=== PATIENT | female | born 1980 | race American Indian/Alaskan Native ===

== ENCOUNTER 2023-10-06 16:39 | Emergency (ER) | payer MEDICAID ==
[2023-10-06] MEDS ORDERED: Sodium Chloride 0.9% 10 ML Syringe FLUSH PRN (16:52)
[2023-10-06] MEDS ORDERED: Dexamethasone 4 MG/ML SDV IVPUSH ONE (16:53)
[2023-10-06] MEDS ORDERED: Sodium Chloride 0.9% 1,000 ML IV ONE (16:53)
[2023-10-06] MEDS ORDERED: Magnesium Sulfate/Water 2 GM in Premix Bag 1 BAG IV ONE (16:53)
[2023-10-06] MEDS ORDERED: Albuterol/Ipratropium 3.0-0.5 MG/3 ML Neb Soln NEB ONE (16:54)
[2023-10-06 17:07] LABS: BASOPHILS PERCENT AUTO 0.2 % (0.0-1.0); HEMATOCRIT 41.7 % (37.0-47.0); HEMOGLOBIN 14.1 g/dL (12.0-16.0); LYMPHOCYTES PERCENT AUTO 7.2 % (20.5-50.1); MEAN CORPUSCULAR HEMOGLOBIN 30.7 pg (27.0-34.0); MEAN CORPUSCULAR HGB CONC 33.8 g/dL (33.0-35.0); MEAN CORPUSCULAR VOLUME 90.7 fL (80-100); MONOCYTES PERCENT AUTO 7.8 % (2-8); NEUTROPHILS PERCENT AUTO 84.8 % (42.2-75.2); PLATELET COUNT,PLT 257 10^3/uL (150-450); WHITE BLOOD CELL COUNT,WBC 11.4 10^3/uL (5.0-10.0)
[2023-10-06] MEDS ORDERED: Ketorolac 30 MG/ML SDV IVPUSH ONE (17:26)
[2023-10-06] MEDS ORDERED: Acetaminophen 500 MG Tab PO ONE (17:26)
[2023-10-06 17:37] LABS: ALBUMIN 3.7 g/dL (3.4-5.0); ANION GAP 12.5 mEq/L (7-13); BILIRUBIN TOTAL 0.4 mg/dL (0.2-1.0); BUN/CREATININE RATIO 12.5 (No establ ref range); C-REACTIVE PROTEIN 2.56 ng/dL (<=0.50); CALCIUM 8.5 mg/dL (8.5-10.1); CREATININE 0.8 mg/dL (0.55-1.02); MAGNESIUM 1.7 mg/dL (1.8-2.4); POTASSIUM,K 3.5 mmol/L (3.5-5.1); PROTEIN TOTAL,TP 7.3 g/dL (6.4-8.2)
[2023-10-06 17:38] LABS: LACTIC ACID 2.1 mmol/L (0.4-2.0)
[2023-10-06 17:51] LABS: CORONAVIRUS COVID-19 NAA NEGATIVE (NEGATIVE); INFLUENZA A NAA POSITIVE (NEGATIVE); INFLUENZA B NAA NEGATIVE (NEGATIVE)
[2023-10-06 18:19] VITALS: BP 130/75; PULSE 84
== END 2023-10-06 18:30 | disposition home or self-care (01) ==
LOC: DL.ED 16:39
DX: J10.1 Influenza due to other identified influenza virus with other respiratory manifestations (principal); J44.9 Chronic obstructive pulmonary disease, unspecified; Z88.6 Allergy status to analgesic agent; Z20.822 Contact with and (suspected) exposure to COVID-19
CPT/HCPCS: 0240U; 36415; 71046; 80053; 83605; 83735; 85025; 86140; 87040; 94640; 96365; 96375; 99284; 99285-25; A9270-GY; J1100; J1885; J3475; J3490; J7030; J7620-GY

== ENCOUNTER 2024-04-12 13:05 | Emergency (ER) | payer MEDICAID ==
[2024-04-12 14:04] VITALS: BP 154/111; PULSE 106
[2024-04-12] MEDS: Ibuprofen 600 MG Tab PO ONE (15:00)
== END 2024-04-12 15:03 | disposition home or self-care (01) ==
LOC: DL.ED 13:05
DX: R68.84 Jaw pain (principal); E86.9 Volume depletion, unspecified; F17.210 Nicotine dependence, cigarettes, uncomplicated; Z79.899 Other long term (current) drug therapy; Z88.6 Allergy status to analgesic agent
CPT/HCPCS: 70486; 99282; 99283; A9270-GY